=== PATIENT | male | born 1985 | race Caucasian/White ===

== ENCOUNTER 2016-07-31 15:48 | Emergency (ER) | payer SELFPAY ==
--- NOTE | ~2016-07-31 | ER ---
PATIENT'S NAME: REVA FLORES [facility] AGE: 30 Y [address] ROOM: [place] [address] LOCATION: [facility] ADMIT DATE: 07/31/2016 ER/Outpatient Report DISCHARGE DATE: 07/31/2016 FAMILY PHYSICIAN: PHYSICIAN, NO ATTENDING PHYSICIAN: Ramon Huggins TIME SEEN: 1610 hours. HISTORY OF PRESENT ILLNESS: The patient is a 30-year-old male who said last night he had several alcoholic drinks to the point where he became intoxicated. The patient went home and vomited 3 or 4 times and today he just felt anxious and jittery. The patient has been able to eat and drink since this morning. The patient's alcohol history says usually it is just a weekend thing, but when he does drink, it is a significant amount. He has had some counseling as far as alcoholism in the past. ALLERGIES: ALLERGIC TO PENICILLIN. HOME MEDICATIONS: None. PAST MEDICAL HISTORY: No chronic diseases. SURGERIES: None. SOCIAL HISTORY: He is a smoker half-pack a day. Also, uses THC. REVIEW OF SYSTEMS: GENERAL: Today, no fever or chills. HEAD/ENT: Denies any head or visual disturbance. RESPIRATORY: No cough or wheezing. GASTROINTESTINAL: No abdominal pain. NEURO/PSYCH: Anxious. OBJECTIVE FINDINGS: VITAL SIGNS: His blood pressure was 154/96, his temp is 98.2, his respiratory rate 20, pulse 117, and his O2 sats 96%. GENERAL APPEARANCE: He is oriented x3. EYES: PERRLA. No icterus. PATIENT'S NAME: REVA FLORES [facility] AGE: 30 Y [address] ROOM: [place] [address] LOCATION: [facility] ADMIT DATE: 07/31/2016 ER/Outpatient Report DISCHARGE DATE: 07/31/2016 FAMILY PHYSICIAN: PHYSICIAN, NO ATTENDING PHYSICIAN: Ramon Huggins NOSE: Septum midline. MOUTH: Oral membranes were moist. LUNGS: Sounded clear. ABDOMEN: Soft, nontender. HEART: Rhythm appeared regular. LABORATORY DATA: CBC: White count 12.3, his hemoglobin 15.2, his ANC was at 8.5. CMS: Potassium was slightly low at 3.6. Liver function tests were normal. ASSESSMENT: Alcohol abuse. PLAN: The patient was given a liter of fluid and four Zofran and said he felt better after the fluids. Recommend home, clear liquids. Follow up with his family doctor if further concerns especially considering his alcohol binging. MANDO QUINN FOR MD ANNE VARGHESE/dinora /[id number] d: 07/31/16 2307 t: 08/17/16 0902, OUTPATIENT REPORT
[2016-07-31 16:24] LABS: BASOPHIL # 0.1 K/uL (0.0-0.2); BASOPHIL % 0.4 %; EOSINOPHIL # 0.1 K/uL (0.0-0.5); EOSINOPHIL % 0.7 %; HEMATOCRIT 44.1 % (37.0-53.0); HEMOGLOBIN 15.2 g/dL (12.0-17.0); IMMATURE GRANULOCYTE # 0.1 K/uL (0.0-0.3); IMMATURE GRANULOCYTE % 0.7 %; LYMPHOCYTE # 2.6 K/uL (0.8-4.0); LYMPHOCYTE % 21.4 %; MCH 31.2 pg (27.0-34.0); MCHC 34.5 gm/dL (32.0-36.5); MCV 90.6 fl (83.0-98.0); MONOCYTE % 7.7 %; MPV 10.4 fl (9.4-12.4); NEUTROPHIL # (ANC) 8.5 K/uL (1.4-9.0); NEUTROPHIL % 69.1 %; NRBC % 0 /100WBC (0-0.00); PLATELET COUNT 221 K/uL (150-450); RBC 4.87 M/uL (4.00-6.00); RDW-CV 12.9 % (11.9-14.6); WBC 12.3 K/uL (4.0-11.0)
[2016-07-31 16:43] LABS: ALBUMIN 3.9 gm/dL (3.5-5.0); ALK PHOS 70 IU/L (33-138); ALT 28 IU/L (12-78); ANION GAP 14.6 (10.0-19.0); AST 25 IU/L (10-40); BLOOD UREA NITROGEN 14 mg/dL (6-24); CALCIUM 8.6 mg/dL (8.5-10.5); CHLORIDE 105 mMol/L (96-110); CO2 23 mMol/L (22-32); CREATININE 0.9 mg/dL (0.6-1.3); ESTIMATED GFR (MDRD EQUATION) > 60; POTASSIUM 3.6 mMol/L (3.7-5.1); SODIUM 139 mMol/L (135-145); TOTAL PROTEIN 7.3 g/dL (6.0-8.4)
[2016-07-31 16:45] LABS: TOTAL BILIRUBIN 0.3 mg/dL (0.0-1.5)
== END 2016-07-31 17:07 | disposition disaster alternative care site (69) ==
LOC: GMED 15:48
PROVIDERS: Physician Assistant Medical
DX: F10.129 Alcohol abuse with intoxication, unspecified (principal); F17.210 Nicotine dependence, cigarettes, uncomplicated; Z88.0 Allergy status to penicillin
CPT/HCPCS: J2405; J7030

== ENCOUNTER 2016-09-25 05:35 | Emergency (ER) | payer SELFPAY ==
--- NOTE | ~2016-09-25 | ER ---
PATIENT'S NAME: REVA FLORES [facility] AGE: 30 Y [address] ROOM: [place] [address] LOCATION: [facility] ADMIT DATE: 09/25/2016 ER/Outpatient Report DISCHARGE DATE: 09/25/2016 FAMILY PHYSICIAN: PHYSICIAN, NO ATTENDING PHYSICIAN: Onel Anthony Time of Arrival: 0535 hours. Time of Evaluation: 0608 hours. IDENTIFICATION: A 30-year-old male. CHIEF COMPLAINT: "Cannot sleep." HISTORY OF PRESENT ILLNESS: The patient is a 30-year-old male who cannot sleep. He has difficulty breathing where he just cannot feel like he takes a deep breath due to discomfort in his upper abdomen. He has pain in his right chest, started 2 hours prior to arrival, intermittent. He feels hot and cold. He has been belching and "feels like my throat is on fire." He has had nausea, no vomiting. Slight cough productive of clear to colored sputum and some right upper quadrant pain. No back pain. No diarrhea or constipation per se, but he says, "I have not been able to have a really solid bowel movement for months and months." He has some increased frequency of urination, and then now the last 12 hours, it has been less. PAST MEDICAL HISTORY: ALLERGIES: THE PATIENT DOES NOT TAKE PENICILLIN BECAUSE HIS MOTHER HAS A SEVERE ALLERGY, AND HE IS ALLERGIC TO STRAWBERRIES. CURRENT MEDICATIONS: Denies medical problems. MEDICAL PROBLEMS: Anxiety and PTSD and history of alcoholism according to old records. No prior surgeries. SOCIAL HISTORY: The patient lives here in [place]. 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 Tobacco use, half pack per day. Alcohol use on the weekends. Drug use, marijuana occasionally. He said the amount of alcohol on the weekends "depends." PATIENT'S NAME: REVA FLORES [facility] AGE: 30 Y [address] ROOM: [place] [address] LOCATION: [facility] ADMIT DATE: 09/25/2016 ER/Outpatient Report DISCHARGE DATE: 09/25/2016 FAMILY PHYSICIAN: PHYSICIAN, NO ATTENDING PHYSICIAN: Onel Anthony FAMILY HISTORY: Positive for heart disease. REVIEW OF SYSTEMS: All systems reviewed and negative other than what is noted in the HPI. PHYSICAL EXAMINATION: VITAL SIGNS: Height 5 feet 10 inches and weight 78 kg. Blood pressure 155/98, pulse 110, respirations 16, temperature 98.2, and saturations 97% on room air. GENERAL: A 30-year-old male, in no acute distress. HEENT: Head: Normocephalic, atraumatic. Ears: TMs translucent, both ears. Nose: Mucosa pink, no lesions. Mouth: No lesions. Pharynx benign. NECK: Supple. No lymphadenopathy. LUNGS: Clear to auscultation. HEART: Regular rate and rhythm. ABDOMEN: Bowel sounds present. Soft, nondistended. Tender in the epigastric region, slightly in the right upper quadrant. No rebound or guarding. No CVA tenderness. SKIN: [place], warm, and dry. No lesions or rashes noted. NEURO: No focal deficit. EXTREMITIES: No lower extremity edema. EMERGENCY DEPARTMENT COURSE: An IV was initiated. The patient was given 1 L bolus of normal saline, GI cocktail, and Protonix 40 mg IV with improvement of his symptoms, and he was given Zofran 4 mg ODT prior to the IV. EKG: Sinus tachycardia, 114 beats per minute. Recheck of heart rate after fluids is 96. Urine drug screen positive for cannabinoids. UA negative. Hemoglobin 15.6, hematocrit 44.5, platelets 196, white count of 11.6 with normal differential. INR 1.05. Sodium 140, potassium 3.5, chloride 106, CO2 of 23, BUN 9, creatinine 0.9, blood sugar 97. Liver enzymes normal. Magnesium 2. Alcohol 0.069. Amylase 54, lipase 195. CPK 929, CK-MB 4.1, troponin I less than 0.040. 90-minute cardiac enzymes; CPK 818, CK-MB 3.5, troponin I less than 0.040. Two-view chest x-ray: No acute process, pending Radiology over-read. IMPRESSION AND PLAN: 1. Gastroesophageal reflux disease: Epigastric pain improved with GI cocktail and Protonix and fluids. The patient will continue Prilosec [id number] 20 mg daily, avoid alcohol, rest and fluids, and establish care with a primary care physician and follow up in 1 to 3 days. 2. Insomnia: The patient states that he is feeling better and feels that that is not a problem at this time. 3. Mild hypokalemia: IV fluids given here in the emergency room. PATIENT'S NAME: REVA FLORES [facility] AGE: 30 Y [address] ROOM: [place], [place] [address] LOCATION: [facility] ADMIT DATE: 09/25/2016 ER/Outpatient Report DISCHARGE DATE: 09/25/2016 FAMILY PHYSICIAN: PHYSICIAN, NO ATTENDING PHYSICIAN: Onel Anthony 4. Chronic alcohol abuse with mildly elevated alcohol on today's examination: The patient does not want any assistance with this as he does not feel like it is a problem for him. MD TI WOOD/dinora /[id number] d: 09/25/16 1351 t: 09/25/16 1459, OUTPATIENT REPORT
[2016-09-25 06:30] LABS: BILIRUBIN URINE NEGATIVE (NEGATIVE); BLOOD URINE NEGATIVE /UL (NEGATIVE); COLOR URINE YELLOW (YELLOW); GLUCOSE URINE NEGATIVE (NEGATIVE); KETONE URINE 5 mg/dL (NEGATIVE); LEUKOCYTES URINE NEGATIVE /UL (NEGATIVE); NITRITE URINE NEGATIVE (NEGATIVE); PROTEIN URINE NEGATIVE (NEGATIVE); SPEC GRAVITY URINE 1.025 (1.003-1.035); TURBIDITY URINE CLEAR (CLEAR); UROBILINOGEN URINE NORMAL (NORMAL)
[2016-09-25 06:37] LABS: BASOPHIL # 0.1 K/uL (0.0-0.2); BASOPHIL % 0.5 %; EOSINOPHIL # 0.1 K/uL (0.0-0.5); EOSINOPHIL % 0.8 %; HEMATOCRIT 44.5 % (37.0-53.0); HEMOGLOBIN 15.6 g/dL (12.0-17.0); IMMATURE GRANULOCYTE # 0.1 K/uL (0.0-0.3); IMMATURE GRANULOCYTE % 0.6 %; LYMPHOCYTE # 2.6 K/uL (0.8-4.0); LYMPHOCYTE % 22.2 %; MCH 31.7 pg (27.0-34.0); MCHC 35.1 gm/dL (32.0-36.5); MCV 90.4 fl (83.0-98.0); MONOCYTE # 1.2 K/uL (0.0-1.0); MONOCYTE % 9.9 %; MPV 10.5 fl (9.4-12.4); NEUTROPHIL # (ANC) 7.6 K/uL (1.4-9.0); NRBC % 0 /100WBC (0-0.00); PLATELET COUNT 196 K/uL (150-450); RBC 4.92 M/uL (4.00-6.00); RDW-CV 12.7 % (11.9-14.6); WBC 11.6 K/uL (4.0-11.0)
[2016-09-25 06:47] LABS: BARBITURATE NEGATIVE (NEGATIVE)
[2016-09-25 06:49] LABS: INR - (THERAPEUTIC) 1.05 (0.92-1.07); PTT 29 SECONDS (25-32)
[2016-09-25 06:50] LABS: AMPHETAMINE NEGATIVE (NEGATIVE)
[2016-09-25 06:51] LABS: COCAINE NEGATIVE (NEGATIVE); OPIATES NEGATIVE (NEGATIVE)
[2016-09-25 06:54] LABS: ALK PHOS 67 IU/L (33-138); ALT 30 IU/L (12-78); ANION GAP 14.5 (10.0-19.0); AST 34 IU/L (10-40); BLOOD UREA NITROGEN 9 mg/dL (6-24); CALCIUM 8.5 mg/dL (8.5-10.5); CHLORIDE 106 mMol/L (96-110); CO2 23 mMol/L (22-32); CPK 929 IU/L (35-332); CREATININE 0.9 mg/dL (0.6-1.3); ESTIMATED GFR (MDRD EQUATION) > 60; POTASSIUM 3.5 mMol/L (3.7-5.1); SODIUM 140 mMol/L (135-145); TOTAL BILIRUBIN 0.4 mg/dL (0.0-1.5); TOTAL PROTEIN 7.5 g/dL (6.0-8.4)
[2016-09-25 08:21] LABS: CPK 818 IU/L (35-332)
== END 2016-09-25 08:58 | disposition disaster alternative care site (69) ==
LOC: GMED 05:35
PROVIDERS: Family Medicine
DX: K21.9 Gastro-esophageal reflux disease without esophagitis (principal); F10.20 Alcohol dependence, uncomplicated; G47.00 Insomnia, unspecified; F41.9 Anxiety disorder, unspecified; E87.6 Hypokalemia; Z88.0 Allergy status to penicillin; Z91.02 Food additives allergy status; Y90.0 Blood alcohol level of less than 20 mg/100 ml
CPT/HCPCS: C9113; G0480; J7030

== ENCOUNTER 2016-11-06 14:17 | Emergency (ER) | payer SELFPAY ==
--- NOTE | ~2016-11-06 | ER ---
PATIENT'S NAME: REVA FLORES [facility] AGE: 30 Y [address] ROOM: [place] [address] LOCATION: [facility] ADMIT DATE: 11/06/2016 ER/Outpatient Report DISCHARGE DATE: 11/06/2016 FAMILY PHYSICIAN: PHYSICIAN, NO ATTENDING PHYSICIAN: Ramon Ocasio CHIEF COMPLAINT: Right ankle pain. HISTORY OF PRESENT ILLNESS: This patient was inebriated last night. He jumped up in an attempt to touch the ceiling and came back down on his right ankle with it rolled laterally. He does have right lateral ankle pain with swelling. He has been able to bear weight, however, it is uncomfortable. No previous injury to this ankle. He does admit to not feeling well due to the amount of alcohol that he consumed last night. PAST MEDICAL HISTORY: None. SOCIAL HISTORY: He smokes half a pack per day. He drinks alcohol every weekend, stating that he drinks quite a bit on weekends and that he believes that he should cut back, but it has become quite a habit. He smokes marijuana occasionally. REVIEW OF SYSTEMS: CONSTITUTIONAL: He denies any recent illnesses. No fevers, chills, or sweats. HEENT: No complaints. CARDIOVASCULAR: No complaints. RESPIRATORY: No complaints. GI: He is nauseated. He believes that is from having drank a great deal of alcohol last evening. No vomiting. No diarrhea, constipation, or abdominal pain. : No complaints. NEURO: No complaints. MUSCULOSKELETAL: Right ankle pain/injury as previously described. HEMATOLOGY: No history of bleeding disorder. SKIN: No new rashes or lesions. ENDOCRINE: No complaints. PSYCH: No complaints. PHYSICAL EXAMINATION: VITAL SIGNS: Temperature 98.2, pulse 94, respiratory rate 16, and blood pressure 164/115. GENERAL: He is alert and oriented. [place], warm, and dry. He does smell of PATIENT'S NAME: REVA FLORES [facility] AGE: 30 Y [address] ROOM: [place], [place] [address] LOCATION: [facility] ADMIT DATE: 11/06/2016 ER/Outpatient Report DISCHARGE DATE: 11/06/2016 FAMILY PHYSICIAN: PHYSICIAN, NO ATTENDING PHYSICIAN: Ramon Ocasio alcohol. In no acute distress. HEENT: Head: Normocephalic and atraumatic. Eyes: PERRL. Ears: TMs pearly vieira with light reflex and landmarks easily visible. Nose: Turbinates are pink without rhinorrhea. Throat: Pharynx is without edema, erythema, or exudate. Uvula is midline. Mucous membranes are moist. NECK: Supple. No lymphadenopathy. LUNGS: Clear to anterior-posterior auscultation bilaterally. No wheezes or crackles. Normal respiratory effort and rate. No chest wall tenderness. HEART: Heart rate is regular. Normal S1 and S2. No murmurs noted. ABDOMEN: Soft, nontender, and nondistended. Bowel sounds are present in all 4 quadrants. EXTREMITIES: Capillary refill is less than 3 seconds. Peripheral pulses are 2+. Right ankle is edematous in a circumferential fashion. There is early ecchymosis on the lateral. The ankle is tender medially and laterally, but more so on the lateral surface. Range of motion is limited due to pain. He does have full range of motion of his toes. Toes are neurovascularly intact. Pedal and posterior tibial pulses are 2+. NEURO: Cranial nerves II through II are grossly intact. LABORATORY AND X-RAY DATA: X-ray of the right ankle reveals no fracture and no dislocation. IMPRESSION/ASSESSMENT: Sprained right ankle. EMERGENCY DEPARTMENT COURSE: The patient was fitted with an Karl bandage as well as air splint. He was given Zofran and ibuprofen. DISPOSITION/PLAN: He is to follow up with his primary care provider if he is not better in 7 days or sooner if he is worse. He may take Tylenol and/or ibuprofen for discomfort and he is to use ice and elevation for the remainder today. He believes he will be able to work tomorrow as he will not have to be walking much and I believe it will be fine for him to work as long as he is not having to be up on his feet all day. INGRID LUI APRN FOR RAMON OCASIO MD DP/renzol PATIENT'S NAME: FLORES, REVA D [facility] AGE: 30 Y [address] ROOM: [place] [address] LOCATION: [facility] ADMIT DATE: 11/06/2016 ER/Outpatient Report DISCHARGE DATE: 11/06/2016 FAMILY PHYSICIAN: TORY KAY ATTENDING PHYSICIAN: Ramon Ocasio /[id number] d: 11/07/16100 t: 11/17/16 1619, OUTPATIENT REPORT
== END 2016-11-06 15:35 | disposition disaster alternative care site (69) ==
LOC: GACC 14:17
DX: S93.401A Sprain of unspecified ligament of right ankle, initial encounter (principal); F17.210 Nicotine dependence, cigarettes, uncomplicated; X50.0XXA Overexertion from strenuous movement or load, initial encounter; Y93.39 Activity, other involving climbing, rappelling and jumping off; Y99.8 Other external cause status

== ENCOUNTER 2016-12-18 12:55 | Emergency (ER) | payer SELFPAY ==
--- NOTE | ~2016-12-18 | ER ---
PATIENT'S NAME: REVA FLORES [facility] AGE: 31 Y [address] ROOM: [place] [address] LOCATION: [facility] ADMIT DATE: 12/18/2016 ER/Outpatient Report DISCHARGE DATE: 12/18/2016 FAMILY PHYSICIAN: Rajesh Castellanos MD ATTENDING PHYSICIAN: Hilda Anthony Admission date and time documented on the medical record. I saw the patient at 1305 hours. CHIEF COMPLAINT: Shortness of breath, rapid heart rate, cough. HISTORY OF PRESENT ILLNESS: The patient is a 31-year-old male, who got quite intoxicated with alcohol last night. About 4 or 5 hours prior to admission to the emergency room, he woke up and noticed that his heart was racing and also short of breath. Sounds to some extent that he got quite anxious and hyperventilated. Denied any fever, chills, or sweats. No nausea, vomiting, or diarrhea. No urinary symptoms. No headache, eyes, ears, nose, throat, neck, or spine pain. Little lightheaded and dizzy, but no syncope or near syncope. No fall or trauma. No joint or muscle swelling, redness, or pain. No skin eruptions or rash. Does have a history of posttraumatic stress disorder, anxiety. No neuro changes or endocrine problems. HOME MEDICATIONS: None. ALLERGIES: STRAWBERRIES. SOCIAL HISTORY: The patient smokes half-pack of cigarettes a day. Drinks alcohol fairly regularly. Uses marijuana occasionally. PAST MEDICAL HISTORY: Posttraumatic stress disorder, anxiety, alcohol, tobacco abuse, and marijuana use. PAST SURGICAL HISTORY: None. REVIEW OF SYSTEMS: All systems reviewed by me are negative with the exception of those discussed in the history of present illness. PATIENT'S NAME: RVEA FLORES [facility] AGE: 31 Y [address] ROOM: [place], [place] [address] LOCATION: [facility] ADMIT DATE: 12/18/2016 ER/Outpatient Report DISCHARGE DATE: 12/18/2016 FAMILY PHYSICIAN: Rajesh Castellanos MD ATTENDING PHYSICIAN: Hilda Anthony PHYSICAL EXAMINATION: VITAL SIGNS: Temperature 98.5 tympanic, pulse 125 regular, respirations 18, blood pressure 144/94, and O2 saturation on room air is 97%. HEAD: Normocephalic. EYES, EARS, NOSE, THROAT: Clear. Mucous membranes moist. Teeth, jaw intact. NECK: No nuchal rigidity. No thyromegaly or cervical adenopathy. No tenderness. SPINE: Nontender. No deformity. LUNGS: Clear. Good air flow. No rales, rhonchi, or wheezes. HEART: Regular, tachy, pulses palpable. ABDOMEN: Soft, nondistended, nontender. Good bowel tones. No organomegaly or abnormal mass palpable. EXTREMITIES: Intact. NEUROVASCULAR: Intact. SKIN: Clear. No skin eruptions or rash. The patient is anxious, mildly hyperventilating when I saw the patient. LABORATORY DATA: CMS was normal except for a slightly low potassium 3.6, elevated glucose of 120. Medical blood alcohol was 0.041. White count 7000, 61 segs, 29 lymphs, 8 monos, 1 eos, 1 baso. Hemoglobin is 15.9, hematocrit 46.0, platelet count is 209,000. EKG showed sinus arrhythmia with a rate of about 81. IMPRESSION: 1. Anxiety hyperventilation. 2. Intermittent tachyarrhythmia sinus tach. 3. Alcohol, tobacco, and marijuana abuse. 4. Posttraumatic stress disorder. PLAN: The patient was given 1 L of normal saline IV in the emergency room, Zofran 4 mg IV in the emergency room for nausea and vomiting, Ativan 1 mg IV in the emergency room for anxiety. The patient dismissed home. Observation. Activity as tolerated. Fluids diet as tolerated. Avoid alcohol. Avoid tobacco and marijuana. We will start on Ativan 1 mg 3 times a day for 2 days, Zofran 4 mg ODT as needed for nausea and vomiting. Follow up with personal physician as needed. Discussion ensued with the patient concerning my findings and recommendations, he understands. HILDA ANTHONY MD SDS/modl PATIENT'S NAME: REVA FLORES [facility] AGE: 31 Y [address] ROOM: [place] [address] LOCATION: [facility] ADMIT DATE: 12/18/2016 ER/Outpatient Report DISCHARGE DATE: 12/18/2016 FAMILY PHYSICIAN: Rajesh Castellanos MD ATTENDING PHYSICIAN: Hilda Anthony /[id number] d: 12/18/16 1923 t: 12/19/16 0610, OUTPATIENT REPORT
[2016-12-18 13:53] LABS: BASOPHIL # 0.1 K/uL (0.0-0.2); BASOPHIL % 0.7 %; EOSINOPHIL # 0.1 K/uL (0.0-0.5); EOSINOPHIL % 1.4 %; HEMOGLOBIN 15.9 g/dL (12.0-17.0); IMMATURE GRANULOCYTE % 0.4 %; LYMPHOCYTE % 28.6 %; MCH 31.4 pg (27.0-34.0); MCHC 34.6 gm/dL (32.0-36.5); MCV 90.9 fl (83.0-98.0); MONOCYTE # 0.6 K/uL (0.0-1.0); MONOCYTE % 8.4 %; MPV 10.9 fl (9.4-12.4); NEUTROPHIL # (ANC) 4.3 K/uL (1.4-9.0); NEUTROPHIL % 60.5 %; NRBC % 0 /100WBC (0-0.00); PLATELET COUNT 209 K/uL (150-450); RBC 5.06 M/uL (4.00-6.00); RDW-CV 12.6 % (11.9-14.6)
[2016-12-18 14:13] LABS: ALBUMIN 3.9 gm/dL (3.5-5.0); ALK PHOS 64 IU/L (33-138); ALT 30 IU/L (12-78); ANION GAP 13.6 (10.0-19.0); AST 22 IU/L (10-40); BLOOD UREA NITROGEN 11 mg/dL (6-24); CALCIUM 8.6 mg/dL (8.5-10.5); CHLORIDE 108 mMol/L (96-110); CO2 22 mMol/L (22-32); CREATININE 0.9 mg/dL (0.6-1.3); POTASSIUM 3.6 mMol/L (3.7-5.1); SODIUM 140 mMol/L (135-145); TOTAL PROTEIN 7.3 g/dL (6.0-8.4)
[2016-12-18 14:15] LABS: TOTAL BILIRUBIN 0.3 mg/dL (0.0-1.5)
== END 2016-12-18 13:41 | disposition disaster alternative care site (69) ==
LOC: GMED 12:55
PROVIDERS: Emergency Medicine
DX: R00.0 Tachycardia, unspecified (principal); R06.4 Hyperventilation; F41.9 Anxiety disorder, unspecified; F17.210 Nicotine dependence, cigarettes, uncomplicated; F43.10 Post-traumatic stress disorder, unspecified; F12.10 Cannabis abuse, uncomplicated; F10.10 Alcohol abuse, uncomplicated; Z91.02 Food additives allergy status; Y90.0 Blood alcohol level of less than 20 mg/100 ml
CPT/HCPCS: G0480; J2060; J2405; J7030